=== PATIENT | female | born 1980 ===

== ENCOUNTER 2018-10-06 10:20 | Inpatient (IN) | payer MEDICAID ==
--- NOTE | 2018-10-04 12:00 | Pre-op HX & Phy Repo 2 SIG ---
DATE OF ADMISSION: 10/06/2018 SCHEDULED FOR SURGERY: October 06, 2018. HISTORY OF PRESENT ILLNESS: The patient is a 38-year-old female in overall stable health with invasive ductal carcinoma of the right breast. The patient presented in February 2018 with a 2 cm mass in the right breast at 11 o'clock just above the areolar border. Core biopsy revealed invasive ductal carcinoma. The patient had a grandmother who had breast cancer at age 60. Genetic testing was negative. Estrogen and progesterone receptors were positive and HER2 was positive as well. The patient has been treated with neoadjuvant chemotherapy and is now ready for surgery to include right breast partial mastectomy with right axillary lymph node biopsy. The patient also developed a 2 cm thickening or mass at 10 o'clock at the periphery of the upper outer quadrant of the right breast with ultrasound revealing either benign breast tissue or possibly a benign hamartoma. This will be excised at the same time. PAST MEDICAL HISTORY AND MEDICATIONS: Tegretol for history of epilepsy at age 12. Cymbalta for anxiety and depression. ALLERGIES: Aspirin causes stomach upset. OPERATIONS: She had surgery at age 22 for ovarian cysts. REVIEW OF SYSTEMS: The patient had been taking control pills, has stopped. PHYSICAL EXAMINATION: GENERAL: well-developed, well-nourished patient, 5 foot 7 inches, approximately 145 pounds. HEENT: Within normal limits. LUNGS: Clear. HEART: Regular rhythm. BREASTS: Full and non-ptotic. There is a small nodule approximately 1 cm above the areola at 11 o'clock of the right breast and a 2 cm thickening in the periphery of the upper outer quadrant at 10 o'clock, most pronounced sitting. The left breast is unremarkable. There is no palpable axillary or supraclavicular lymphadenopathy. ABDOMEN: Soft. PELVIC: Per primary care. RECTAL: Per primary care. EXTREMITIES: Without edema. NEUROLOGIC: Physiologic. IMPRESSION: Invasive ductal carcinoma right breast, status post neoadjuvant chemotherapy. PLAN: Right breast partial mastectomy with right axillary lymph node biopsy and excision of lateral right breast mass.. I have had a full discussion with the patient regarding the nature of the surgery, indications, alternatives, options, and risks including bleeding, infection, need for additional surgery based on final pathology, need for additional treatment including chemotherapy, radiation, hormonal treatment, etc., based on final pathology, scarring, distortion of the breast, etc. All questions have been answered. The patient understands and agrees to proceed. Dangelo Gomez M.D. DR: ERICA JOB#: [id number] CC: RENU
[2018-10-06] VITALS (16 sets, daily range): BP systolic 102–127; BP diastolic 48–81
[~2018-10-06] VITALS: Ht 170.2 cm; Wt 61.2 kg
[~2018-10-06 10:20] MED LIST: CYMBALTA60 MG ORAL; DOCUSATE SODIU100 MG ORAL; TEGRETOL200 MG PO; lunesta PO
[2018-10-06] MEDS ORDERED: Bacitracin 50000 Units Vial ONE (10:25)
[2018-10-06] MEDS ORDERED: NeoSporin Gu Irrig 1ml Amp IRRIG ONE (10:25)
[2018-10-06 10:56] LABS: APPEARANCE,URINE SLIGHTLY CLOUDY; BILIRUBIN, URINE NEGATIVE (NEGATIVE); GLUCOSE, URINE (UA) NEGATIVE (NEGATIVE); KETONES,URINE 1+ (NEGATIVE); LEUKOCYTE ESTERASE ,URINE 2+ (NEGATIVE); NITRITE,URINE NEGATIVE (NEGATIVE); PH,URINE 5 (4.5-8.0); PROTEIN,URINE 1+ (NEGATIVE); UROBILINOGEN,URINE NORMAL MG/DL (0.0-1.0)
[2018-10-06 10:58] LABS: COLOR,URINE YELLOW
--- NOTE | 2018-10-06 11:27 | Pre-Procedure Note/Attestation ---
Pre-Procedure Note/Attestation Complete Prior to Procedure Planned Procedure: right Procedure Narrative: right breast partial mastectomy and right axillary lymph node biopsy Indications for Procedure Pre-Operative Diagnosis: invasive ductal carcinoma right breast Attestation I attest that I discussed the nature of the procedure; its benefits; risks and complications; and alternatives (and the risks and benefits of such alternatives ), prior to the procedure, with the patient (or the patient's legal business process representative). I attest that, if there was a reasonable possibility of needing a blood transfusion, the patient (or the patient's legal business process representative) was given the [facility] standardized written summary, pursuant to the Lv Radha Blood Safety Act ([place] Health and Safety Code # 1645, as amended). I attest that I re-evaluated the patient just prior to the surgery and that there has been no change in the patient's H&P, except as documented below: none Dangelo Gomez MD Oct 06, 2018 11:27
--- NOTE | 2018-10-06 11:33 | Anethesia Preoperative Eval ---
Anesthesia Pre-op PMH/ROS General Date of Evaluation: Oct 06, 2018 Anesthesiologist: Farshad ASA Score: ASA 3 Mallampati Score Class I : Soft palate, uvula, fauces, pillars visible Class II: Soft palate, uvula, fauces visible Class III: Soft palate, base of uvula visible Class IV: Only hard plate visible Mallampati Classification: Class I Surgeon: Patricia Diagnosis: Right breast Cancer Surgical Procedure: Right partial breast mastectomy, with axillary lymph node biopsy Anesthesia History: none Family History: no anesthesia problems Allergies: Coded Allergies: ASPIRIN (Verified Adverse Reaction, Intermediate, "throws-up", 10/06/18) Uncoded Allergies: tape (Allergy, Intermediate, "redness", 10/05/18) "cloth skin tape" Medications: see eMAR Patient NPO?: Yes NPO Date: Oct 05, 2018 NPO Time: 2350 Past Medical History Cardiovascular: Denies: HTN, CAD, HI, valve dz, arrhythmia, other Pulmonary: Denies: asthma, COPD, GERMAN, other Gastrointestinal/Genitourinary: Reports: GERD; Denies: CRI, ESRD, other Neurologic/Psychiatric: Reports: depression/anxiety, other - epilepsy- controlled; last seizure at age 12; Denies: dementia, CVA, TIA Endocrine: Denies: DM, hypothyroidism, steroids, other HEENT: Denies: cataract (L), cataract (R), glaucoma, [place] (L), [place] (R), other Hematology/Immune: Reports: anemia - chronic, other - right breast cancer s/p 6 months of chemo; last session 1 month ago; Denies: DVT, bleeding disorder Musculoskeletal/Integumentary: Denies: OA, RA, DJD, DDD, edema, other PSxH Narrative: chemo port Anesthesia Pre-op Phys. Exam Physician Exam Last Vital Signs Date Time Temp Pulse Resp B/P (MAP) Pulse Ox O2 Delivery O2 Flow Rate FiO2 10/06/18 10:52 Room Air 10/06/18 10:49 97.2 81 18 124/77 (93) 99 Constitutional: NAD Cardiovascular: RRR Respiratory: CTA Airway Exam Mallampati Score: Class II MO: full ROM: full Teeth: intact Anesthesia Pre-op A/P Labs see chart Urine Test Test 10/06/18 10:30 Urine HCG, Qualitative Negative (NEGATIVE) Studies Pre-op Studies: EKG - sr Risk Assessment & Plan Assessment: ASA III Plan: GA Status Change Before Surgery: No Pre-Antibiotics Drug: Ancef 1g Given Within 1 Hr of Incision: Yes Stephanie Davison MD Oct 06, 2018 11:33
[2018-10-06] MEDS ORDERED: Propofol 200mg/20ml IV ONE ×2 (11:41→12:32)
[2018-10-06] MEDS ORDERED: Lidocaine 1% MPF 10mg/ml 5ml ONE (11:41)
[2018-10-06] MEDS ORDERED: fentaNYL 100 mcg/2 mL IV ONE (11:42)
[2018-10-06] MEDS ORDERED: Midazolam 2mg/2ml Inj ONE ×2 (11:42→12:08)
[2018-10-06] MEDS ORDERED: LR 1000ml 1,000 ML IVLG SCH (11:58)
[2018-10-06] MEDS ORDERED: LORazepam Inj 2mg/ml 1ml IV PRN (12:00)
[2018-10-06] MEDS ORDERED: Hydromorphone 0.5mg/0.5ml inj IVP PRN (12:00)
[2018-10-06] MEDS ORDERED: Sterile Water Irrig 1000ml IRRIG ONE (12:00)
[2018-10-06] MEDS ORDERED: DiphenhydrAMINE 50mg/ml Inj IVP PRN (12:00)
[2018-10-06] MEDS ORDERED: Midazolam 2mg/2ml Inj IVP PRN (12:00)
[2018-10-06] MEDS ORDERED: NS Irrig 1000ml ONE (12:00)
[2018-10-06] MEDS ORDERED: Sterile Water 10ml Vial ONE (12:00)
[2018-10-06] MEDS ORDERED: fentaNYL 100 mcg/2 mL IV PRN (12:00)
[2018-10-06] MEDS ORDERED: LR 1000ml ONE (12:00)
[2018-10-06] MEDS ORDERED: Metoclopramide 10mg/2ml Inj ONE (12:32)
--- NOTE | 2018-10-06 14:13 | Brief Operative Note ---
Immediate Post Operative Note Operative Note Pre-op Diagnosis: invasive ductal carcinoma right breast Procedure: right breast partial mastectomy and excision additional nodule of periphery right breast, right axillary lymph node biopsy Post-op Diagnosis: same Post-op Diagnosis: same as pre-op Findings: consistent w/pre-op dx studies Surgeon: crista Anesthesiologist: padmini Anesthesia: general Specimen: yes - right breast tissue, right axillary lymph nodes Complications: none Condition: stable Fluids: see anesthesia record Estimated Blood Loss: minimal Drains: BRIA Implant(s) used?: No Dangelo Gomez MD Oct 06, 2018 14:13
--- NOTE | 2018-10-06 14:17 | Immediate Post-Op Evaluation ---
Immediate Post-Op Evalulation Immediate Post-Op Evalulation Procedure: Right partial breast mastectomy with lymph node biopsy Date of Evaluation: Oct 06, 2018 Time of Evaluation: 14:18 IV Fluids: 1.3L Blood Products: 0 Estimated Blood Loss: min Urinary Output: 0 Blood Pressure Systolic: 103 Blood Pressure Diastolic: 51 Pulse Rate: 81 Respiratory Rate: 16 O2 Sat by Pulse Oximetry: 100 Temperature (Fahrenheit): 97.4 Pain Score (1-10): 0 Nausea: No Vomiting: No Complications 0 Patient Status: awake, reacts, patent, none Hydration Status: adequate Drug: Ancef 1g Given Within 1 Hr of Incision: Yes Stephanie Davison MD Oct 06, 2018 14:17
--- NOTE | 2018-10-06 14:18 | 48 Hour Post Anesthesia Eval ---
Post Anesthesia Evaluation Procedure: Right partial breast mastectomy with lymph node biopsy Date of Evaluation: Oct 06, 2018 Airway: patent Nausea: No Vomiting: No Pain Intensity: 0 Hydration Status: adequate Cardiopulmonary Status: at baseline Mental Status/LOC: patient returned to baseline Post-Anesthesia Complications: 0 Follow-up care needed: ready to discharge Stephanie Davison MD Oct 06, 2018 14:18
--- NOTE | 2018-10-06 16:40 | NUR ---
NURSE NOTES: Received report from bellows charger assembler Lisa. Patient arrived to unit at 1545. Patient is awake alert and oriented x4, talkative, reporting mild pain in right breast. On 2L NC. Dressing assessed c/d/i. BRIA drain compressed. SCD's in place. IV intact and asymptomatic. Side rails upx3, bed low and locked, call light in reach. Will continue to monitor.
[2018-10-06] MEDS ORDERED: D5 1/2NS w/KCl 20mEq 1,000 ML IV SCH (17:00)
[2018-10-06] MEDS: HYDROmorphone 1mg/ml Carpuject SUBQ PRN ×2 (17:18→20:20)
--- NOTE | 2018-10-06 18:00 | NUR ---
NURSE NOTES: Patient in stable condition. No output in BRIA bulb, serosanguinous drainage noted in BRIA tubing. Educated patient on BRIA drain care.
[2018-10-06] MEDS: ceFAZolin sod 1 GM in D5W 55 ML IV SCH (18:25)
--- NOTE | 2018-10-06 19:30 | NUR ---
HAND-OFF: Report given to Sera TOMAS. Patient is in stable condition.
--- NOTE | 2018-10-06 20:29 | NUR ---
NURSE NOTES: Received report from GENOVEVA Grewal. Patient is aaox4. VSS, no shortness of breath. Surgical dressing c/d/i. Dilaudid given for pain of 02/01 and zofran given for nausea by Rony TOMAS. Significant other at bedside. Bed low, call light within reach. Addendum: 10/06/18 at 2252 by REZA BIANCHI RN BRIA drain compressed, output serous.
--- NOTE | 2018-10-06 21:15 | Operative Note - Dictated ---
DATE OF OPERATION: 10/06/2018 SURGEON: Dangelo Gomez M.D. ASSISTANCE SURGEON: None. ANESTHESIOLOGIST: Dr. Yen. TYPE OF ANESTHESIA: General. PREOPERATIVE DIAGNOSES: 1. Invasive ductal carcinoma, right breast. 2. Right breast nodule. POSTOPERATIVE DIAGNOSES: 1. Invasive ductal carcinoma, right breast. 2. Right breast nodule. OPERATION PERFORMED: 1. Right breast partial mastectomy. 2. Excision of additional right breast nodule. 3. Right axillary lymph node biopsy. DESCRIPTION OF PROCEDURE: The patient was taken to the operating room and under general anesthesia with sequential compression device stockings in place, she was prepped and draped in usual fashion incorporating the right upper extremity in the operative field. The carcinoma was located at 11 o'clock just above the areolar border. A transverse curvilinear incision was made achieving hemostasis with cautery. Flaps were dissected circumferentially preserving the nipple-areolar complex. A partial mastectomy resection down to the chest wall was performed and the specimen oriented with suture markers anterior, superior, medial, and the tissue given to the pathologist, who found that the margins were clear. The palpable lesion either a benign hamartoma or localized fibroglandular tissue was in the periphery of the upper outer quadrant of the right breast and after changing gloves, I dissected the flap further lateral and resected this lesion with cautery without making a separate skin incision. This was also given to the pathologist. The field was irrigated with antibiotic solution and hemostasis carefully achieved with cautery. The incision was closed with interrupted 3-0 Vicryl deep dermal subcutaneous sutures followed by continuous 4-0 Monocryl subcuticular suture. A right axillary incision was made achieving hemostasis with cautery and incising the clavipectoral fascia. Lower level dissection was performed using the Thunderbeat device. The specimen was given to pathology to confirm the presence of several lymph nodes. The field was irrigated and hemostasis was secured. Through a separate incision inferolateral, a 19 mm Tommie drain was placed into the axilla and sutured to the skin with 2-0 nylon suture. The field was irrigated. Hemostasis was seen to be secured. The incision was closed in layers with interrupted 3-0 Vicryl and the skin closed with continuous 4-0 Monocryl subcuticular suture. Mastisol and half-inch Steri-Strips were applied to both incisions followed by dry sterile dressing. Final sponge and needle counts were correct. Post partial mastectomy, surgical brassiere was applied. The patient tolerated the procedure well and left the operating room in good condition. Dangelo Gomez M.D. DR: VALERIE JOB#: [id number] CC:
[2018-10-06] MEDS: DULoxetine 30mg cap ORAL SCH (22:05)
[2018-10-06] MEDS: carBAMazepine 200mg tab ORAL SCH (22:05)
[2018-10-06] MEDS: HYDROcodone/Acetamin 5/325 tab ORAL PRN (22:06)
[2018-10-07] VITALS: BP 108/74
[2018-10-07] MEDS: ceFAZolin sod 1 GM in D5W 55 ML IV SCH ×2 (02:38→09:22)
[2018-10-07 04:00] VITALS: BP 120/93
[2018-10-07] MEDS: HYDROmorphone 1mg/ml Carpuject SUBQ PRN ×2 (06:31→09:28)
--- NOTE | 2018-10-07 06:39 | General Progress Note ---
Progress Note Progress Note AVSS Required dilaudid x 2 and Zofran IV overnight. Feeling better this AM. right breast and axilla incisions clean with intact dressings BRIA drain with small amount serosang drainage Imp. Pain and nausea Plan: continue hospital stay once she tolerates po intake will d/c IV fluids RN teaching re BRIA drain care Dangelo Gomez MD Oct 07, 2018 06:39
--- NOTE | 2018-10-07 07:40 | NUR ---
NURSE NOTES:WALKING ROUNDS DONE WITH REZA TOMAS.PATIENT A/OX4.ROOM AIR,RIGHT BREAST DRSNG WITH SURGICAL BRA INTACT,NO C/O PAIN.WILL CONTINUE PLAN OF CARE
--- NOTE | 2018-10-07 07:42 | NUR ---
HAND-OFF: Report given to GENOVEVA Lai. Patient stable.
--- NOTE | 2018-10-07 07:42 | NUR ---
NURSE NOTES: BRIA drain output 16 ml, Serosanguineous.
--- NOTE | 2018-10-07 07:52 | 48 Hour Post Anesthesia Eval ---
Post Anesthesia Evaluation Procedure: Right partial breast mastectomy with lymph node biopsy Date of Evaluation: Oct 07, 2018 Time of Evaluation: 07:51 Blood Pressure Systolic: 134 0: 76 Pulse Rate: 68 Respiratory Rate: 20 Temperature (Fahrenheit): 97.6 O2 Sat by Pulse Oximetry: 98 Airway: patent Nausea: No Vomiting: No Pain Intensity: 3 Hydration Status: adequate Cardiopulmonary Status: stable Mental Status/LOC: patient returned to baseline Follow-up Care/Observations: n/a Post-Anesthesia Complications: none Follow-up care needed: N/A Misbah Garcia MD Oct 07, 2018 07:52
[2018-10-07 08:00] VITALS: BP 110/76
[2018-10-07] MEDS: carBAMazepine 200mg tab ORAL SCH ×2 (09:22→22:39)
[2018-10-07] MEDS: HYDROcodone/Acetamin 5/325 tab ORAL PRN ×2 (11:42→22:39)
[2018-10-07 12:00] VITALS: BP 115/77
--- NOTE | 2018-10-07 13:40 | NUR ---
NURSE NOTES:AMBULATED IN HALLWAY WITH STAFF,TOLERATED 2 ROUNDS.NAD.
[2018-10-07 16:00] VITALS: BP 147/65
--- NOTE | 2018-10-07 16:05 | NUR ---
CASE MANAGEMENT:REVIEW 10/06/18 38 YR OLD FEMALE SI: INVASIVE DUCTILE CARCINOMA 97.2 81 18 124/77 99% ON RA IS: TO SURGERY: RT BREAST PARTIAL MASTECTOMY EXCISION OF ADDITIONAL RT BREAST NODULE RT AXILLARY LYMPH NODE BIOPSY BRIA DRAIN PLACED : MED/SURG STATUS 3 [facility] 10/07/18 SI: POD #1 98.1 93 18 110/76 97% ON RA IS: IV ANCEF Q8HRS IVF@75/HR DILAUDID SQ Q3HRS PRN PAIN NORCO PO Q4HRS PRN : MED/SURG STATUS 3 [facility] PLAN: RN TEACHING REGARDING BRIA DRAIN CARE ONCE TOLERATING PO'S DC IVF
--- NOTE | 2018-10-07 19:27 | NUR ---
HAND-OFF: Report given to REZA TOMAS,PATIENT STABLE.
[2018-10-07 20:00] VITALS: BP 101/75
--- NOTE | 2018-10-07 20:05 | NUR ---
NURSE NOTES: Received report from GENOVEVA Lai. Patient is in bed, asleep, aox4. No signs of distress. BRIA drain compressed, output serosanguineous. Dressing clean/dry. Bed low, call light within reach.
--- NOTE | 2018-10-07 20:46 | NUR ---
NURSE NOTES: Patient asleep. Will try to give meds later.
[2018-10-07] MEDS: DULoxetine 30mg cap ORAL SCH (22:39)
[2018-10-08] VITALS: BP 96/62
[2018-10-08 04:00] VITALS: BP 121/67
--- NOTE | 2018-10-08 07:30 | NUR ---
NURSE NOTES: Received pt . Pt is alert and orient x4. Pt is in RA. No SOB or acute respiratory distress noted. pt has intact iv access LH SL. Pt' mom is on bed side. Dr BAGLEY visited pt, change dressing done and gave D/C order. all needs attended, bed is locked and is in the lowest position. call light within easy reach. will continue to monitor.
[2018-10-08 08:00] VITALS: BP 124/64
--- NOTE | 2018-10-08 08:04 | NUR ---
HAND-OFF: Report given to GENOVEVA Collado. Patient stable.
--- NOTE | 2018-10-08 08:38 | General Progress Note ---
Progress Note Progress Note doing well, pain controlled with [place] which she has at home for back pain right breast with mild swelling and lateral ecchymosis. incision clean. right axilla incision clean BRIA 23cc Imp. doing well Plan: discharge with BRIA drain f/u office 10/13 instructions/supplies/limitations provide/discussed Dangelo Gomez MD Oct 08, 2018 08:38
--- NOTE | 2018-10-08 09:30 | NUR ---
NURSE NOTES: During rounds, RN instructed and given print out how to record BRIA drain. pt verbalized understanding and was able to demonstrated back. RN also given supplies to record BRIA drain. plan to d/c home today. I will f/u as needed.
[2018-10-08] MEDS: carBAMazepine 200mg tab ORAL SCH (09:36)
--- NOTE | 2018-10-08 10:15 | NUR ---
NURSE NOTES: pt is stable, V/S stable, all discharge instructions and assessments done and pt verbally confirmed to understand all. all belongings are with pt. pt has to F/U with Dr BAGLEY. phone number given to pt. pt [facility] with accompany of her mother.
--- NOTE | 2018-10-12 09:32 | Discharge Summary ---
Discharge Summary Hospital Course Date of Admission Oct 06, 2018 at 14:55 Date of Discharge Oct 08, 2018 at 10:45 Admitting Diagnosis invasive ductal carcinoma right breast Reason for Hospitalization: elective surgery DORENE Yoon is a 38 year old female who was admitted on Oct 06, 2018 at 14:55 for invasive ductal carcinoma right breast. Patient was admitted for elective surgery. Procedures s/p 10/06/[address] Gomez 1. Right breast partial mastectomy. 2. Excision of additional right breast nodule. 3. Right axillary lymph node biopsy. Hospital Course status post surgery Pain management addressed, pain controlled intimally IV fluids status post perioperative/empiric antibiotics BRIA drain with small amount of serosanguineous drainage , output closely monitored right breast and axilla incisions clean with intact dry dressing patient was taught BRIA drain care at home diet was advanced as tolerated antiemetic provided as needed patient was able to tolerate diet , IV fluids discontinued patient remains hemodynamically stable voided freely, ambulated, bowel regimen instituted patient was stable for discharge home with BRIA drain discharge instructions/supplies/limitations provided and discussed patient to follow-up with a surgeon as outpatient on 10/13 FINAL DIAGNOSES 1. Invasive ductal carcinoma, right breast. 2. Right breast nodule 3. s/p right breast partial mastectomy, excision of additional nodule of periphery right breast, right axillary lymph node biopsy Discharge Medications Continued Medications: Carbamazepine (Tegretol*) 200 Mg Tablet 200 MG PO Q12HR, #10 TAB 0 Refills Docusate Sodium* (Docusate Sodium*) 100 Mg Capsule 100 MG ORAL TWICE A DAY, CAP (This prescription has been renewed) Duloxetine Hcl* (Cymbalta*) 60 Mg Capsule. 60 MG ORAL HS, CAP (This prescription has been renewed) [lunesta] () 1 TAB-CAP PO HS (This prescription has been renewed) Discharge Condition Upon Discharge: stable Discharge Disposition Patient was discharged to Home () Venita Humphrey NP Oct 12, 2018 09:32
== END 2018-10-08 10:45 | disposition home or self-care (01) | DRG 363 ==
LOC: SUR 10:20 → 3E 14:55
PROC: 0HBT0ZX Excision of Right Breast, Open Approach, Diagnostic (ICD-10-PCS; 2018-10-06)
PROC: 07B50ZX Excision of Right Axillary Lymphatic, Open Approach, Diagnostic (ICD-10-PCS; 2018-10-06)
PROC: 0HBT0ZZ Excision of Right Breast, Open Approach (ICD-10-PCS; principal; 2018-10-06 12:00)
DX: C50.411 Malignant neoplasm of upper-outer quadrant of right female breast (principal); Q85.8 Other phakomatoses, not elsewhere classified; F41.8 Other specified anxiety disorders; Z17.0 Estrogen receptor positive status [ER+]; G40.909 Epilepsy, unspecified, not intractable, without status epilepticus
CPT/HCPCS: 81003; 81025; 94003; 94150; A4216; J2250; J2405; J2765